=== PATIENT | female | born 1955 | race Caucasian/White ===

== ENCOUNTER 2019-02-28 14:07 | Outpatient (CLI) | payer OTHER, SELFPAY ==
--- NOTE | 2019-02-28 | XR_ITS ---
WS: [id number] Left knee, 02/28/2019 Clinical Data: LEFT KNEE INJURY INITIAL ENCOUNTER Comparison: None. Findings: No fractures or dislocations are seen. The joint spaces are normal. The patella is intact. The soft t issues are unremarkable. XR/XR knee LT 3V* [id number] Impression: Negative left knee.
== END 2019-02-28 14:08 | disposition home or self-care (01) ==
LOC: RADOUTREAD 14:43
PROVIDERS: Family Provider Family Medicine; Visit Provider Nurse Practitioner
DX: S89.92XA Unspecified injury of left lower leg, initial encounter (principal); W01.0XXA Fall on same level from slipping, tripping and stumbling without subsequent striking against object, initial encounter

== ENCOUNTER → 2019-04-25 16:03 | Outpatient (BNVA) | payer OTHER, SELFPAY | PROVIDERS: Family Provider Family Medicine; Visit Provider Orthopaedic Surgery | DX: S82.042A Displaced comminuted fracture of left patella, initial encounter for closed fracture (principal); X58.XXXA Exposure to other specified factors, initial encounter | CPT/HCPCS: 73562 ==

== ENCOUNTER → 2019-06-05 10:17 | Outpatient (BNVA) | payer OTHER, SELFPAY | PROVIDERS: Family Provider Family Medicine; Visit Provider Orthopaedic Surgery | DX: S82.002A Unspecified fracture of left patella, initial encounter for closed fracture (principal); X58.XXXA Exposure to other specified factors, initial encounter | CPT/HCPCS: 73562 ==

== ENCOUNTER 2020-11-12 12:45 | Outpatient (CLI) | payer OTHER, SELFPAY ==
--- NOTE | 2020-11-12 12:52 | MR_ITS ---
WS: [id number] MRI LEFT SHOULDER ARTHROGRAM HISTORY: SUPERIOR LABRUM ANTERIOR TO POSTERIOR TEAR OF LEFT SHOULDER COMPARISON: None available. TECHNIQUE: Pre and postcontrast imaging. Gadolinium mixture was injected under fluoroscopy. Coronal T 1 fat sat, sagittal T2 fat sat, coronal T2 fat sat, axial proton density, axial T1 nonfat saturation and ABER sagittal T1 fat sat views are submitted. Precontrast imaging: Mild AC joint arthritis encroaching upon the supraspinatus tendon. 5 mm osteophy te along the distal undersurface of the acromion causing mild subacromial impingement. Articular surf shaheen 5 mm tear involving the distal supraspinatus tendon and additional tendinopathy. No os acromion. Biceps tendon remains in good position. No marrow edema or fracture. Post contrast imaging: There is good distention of the joint with contrast. On the postcontrast imagi ng there is a large amount of contrast extending into the subacromial and subdeltoid bursa and also a long the posterior lateral humeral head. There is a gap filled with contrast involving the distal pos terior supraspinatus tendon where it inserts. Contrast extends into the supraspinatus tendon consiste nt with an interstitial tear. No labral tear is identified. There is mild thickening of the axillary pouch. MR/MR shoulder LT wo/w con [id number] IMPRESSION: 1. Moderate size insertion site tear of the distal posterior supraspinatus ten don with interstitial extension of the tear. 2. Large amount of contrast extends into the subacromial and subdeltoid bursa after injection. 3. No labral tear is identified. 4. Mild AC joint arthritis. 5. Mild subacromial impingement.
--- NOTE | 2020-11-12 12:58 | IR_ITS ---
WS: [id number] LEFT SHOULDER ARTHROGRAM UNDER FLUOROSCOPY. PRIOR TO MRI EVALUATION. HISTORY: SUPERIOR labrum ANTERIOR-POSTERIOR(SLAP)TEAR OF LEFT SHOULD COMPARISON: None available. FLUOROSCOPY TIME: 0.7 minutes. Procedure, risks and complications were explained to the patient. Consent has been obtained. Under fluoroscopic guidance the skin is marked over the medial superior third of the humeral head, cl eansed with ChloraPrep and anesthetized with lidocaine. 22-gauge spinal needle is inserted to the cor luis of the humeral head. Test injection with Omnipaque reveals the needle is appropriately positioned in the joint. A mixture of 10 cc sterile saline, 5 cc Omnipaque and 0.1 mmol gadolinium are injected under fluoroscopic guidance. Patient tolerated the joint distention well. No complications. IR/IR arthrogram shoulderLT [id number] IMPRESSION: Uncomplicated LEFT shoulder joint injection prior to MRI.
[2020-11-12] MEDS: iohexol 240 mg/mL 50 mL Btl INTRA-ARTI (13:51)
== END 2020-11-12 12:46 | disposition home or self-care (01) ==
PROVIDERS: PCP Family Medicine; Visit Provider Orthopaedic Surgery
DX: S43.432A Superior glenoid labrum lesion of left shoulder, initial encounter (principal); X58.XXXA Exposure to other specified factors, initial encounter; M25.812 Other specified joint disorders, left shoulder; M13.812 Other specified arthritis, left shoulder; M75.102 Unspecified rotator cuff tear or rupture of left shoulder, not specified as traumatic
CPT/HCPCS: 23350; 73223; 77002; Q9966

== ENCOUNTER 2022-12-03 07:59 | Outpatient (CLI) | payer MEDICARE, OTHER, SELFPAY ==
--- NOTE | 2022-12-03 08:04 | MM_ITS ---
WS: [id number] BILATERAL SCREENING DIGITAL TOMOSYNTHESIS MAMMOGRAM WITH CAD HISTORY: Z00.00 - Encounter for general adult medical examination ... COMPARISON: 04/10/2016 and 06/10/2011 Bilateral CC and MLO views with tomosynthesis and synthetic mammography submitted. Computer aided det ection analyzed. Breast composition: The breasts are heterogeneously dense, which may obscure small masses. No suspici ous masses, microcalcifications or architectural distortion. IMPRESSION: MM/[place] [id number] BI-RADS: 1-Negative FOLLOW UP: 1 Year Follow-up
== END 2022-12-03 08:00 | disposition home or self-care (01) ==
LOC: MOBLMAM 08:11
PROVIDERS: PCP Family Medicine; Visit Provider Family Medicine
DX: Z12.31 Encounter for screening mammogram for malignant neoplasm of breast (principal)
CPT/HCPCS: 77063; 77067

== ENCOUNTER → 2022-12-15 11:15 | Outpatient (BNVA) | payer MEDICARE, OTHER, SELFPAY | PROVIDERS: PCP Family Medicine; Visit Provider Family Medicine | DX: F39 Unspecified mood [affective] disorder (principal); G47.00 Insomnia, unspecified; Z00.00 Encounter for general adult medical examination without abnormal findings; Z13.6 Encounter for screening for cardiovascular disorders | CPT/HCPCS: 80053; 80061 ==

== ENCOUNTER → 2023-11-29 13:08 | Outpatient (BNVA) | payer MEDICARE, OTHER, SELFPAY | PROVIDERS: PCP Family Medicine; Visit Provider Family Medicine | DX: Z00.00 Encounter for general adult medical examination without abnormal findings (principal); G47.00 Insomnia, unspecified; F39 Unspecified mood [affective] disorder | CPT/HCPCS: 80053; 80061 ==

== ENCOUNTER → 2024-09-12 09:28 | Outpatient (BNVA) | payer MEDICARE, OTHER, SELFPAY | PROVIDERS: PCP Family Medicine; Visit Provider Family Medicine | DX: F39 Unspecified mood [affective] disorder (principal); F43.9 Reaction to severe stress, unspecified; R11.0 Nausea; G47.00 Insomnia, unspecified; E03.9 Hypothyroidism, unspecified; F32.A Depression, unspecified | CPT/HCPCS: 80053; 82607; 84443; 85025 ==

== ENCOUNTER 2024-11-29 08:54 | Emergency (ER) | payer MEDICARE, OTHER, SELFPAY ==
[2024-11-29 08:55] VITALS: BP 161/73; PULSE 83; RESP 22; O2SAT 100; BMI 17.8
--- NOTE | 2024-11-29 08:58 | ECG_ITS ---
[facility] 2024-[facility]29 Pat Name: Saumya Mckeon Department: Room: Gender: Female Online Editor: : 1955 Requested By: Sangeetha Ibanez Order Number: [id number] Reading MD: PHIL SMITH Measurements Intervals [place] Rate: 67 P: 77 VA: 132 QRS: 87 QRSD: 94 T: 79 QT: 388 QTc: 410 Interpretive Statements SINUS RHYTHM POSSIBLE RIGHT VENTRICULAR CONDUCTION DELAY [RSR (QR) IN V1/V2] No previous ECG available for comparison Electronically Signed On 11-30-2024 16:50:38 CDT by PHIL SMITH [email or web address]
[2024-11-29 09:20] LABS: Hematocrit 44.5 % (36-47); Hemoglobin 14.40 g/dL (11.27-16.99); Mean Corpuscular HGB Conc 32.4 g/dL (30-55); Mean Corpuscular Hemoglobin 27.8 pg (27-33); Mean Corpuscular Volume 85.9 fl (85-98); Nucleated Red Blood Cells % 0 %; Platelet Count 302 10^3/cmm (157-399); Red Blood Count 5.18 10^6/uL (3.85-5.65); White Blood Count 10.58 10^3/uL (3.29-11.43)
--- NOTE | 2024-11-29 09:22 | W.ED.ANXIETY ---
HPI - Anxiety General: Chief Complaint: Anxiety Stated Complaint: Syncope Time Seen by Provider: 11/29/24 08:56 Source: patient Mode of arrival: ambulatory Limitations: no limitations History of Present Illness: 69-year-old female states that she was over the surgery department as her mother had broken her hip was going to have surgery today. States she been feeling extremely anxious and believes she had an anxiety attack she is tachypneic here states that she started breathing fast and felt she was going to pass out and got dizzy she denies any pain anywhere denies any fevers worsening improved after Related Data Home Medications ?Medication ?Instructions ?Recorded ?Confirmed progesterone micronized 100 mg 100 mg PO BEDTIME 11/29/24 11/29/24 capsule trazodone 150 mg tablet 150 mg PO QPM depression/insomnia 11/29/24 11/29/24 Previous Rx's ?Medication ?Instructions ?Recorded ondansetron HCl 4 mg tablet 4 mg PO Q8H PRN nausea and 09/12/24 vomiting #30 tabs pantoprazole 40 mg tablet,delayed 40 mg PO DAILY stomach #90 tabs 11/14/24 release zolpidem 5 mg tablet (Ambien) 5 mg PO .qhs sleep #30 tabs 11/14/24 Allergies Allergy/AdvReac Type Severity Reaction Status Date / Time No Known Allergies Allergy Verified 11/29/24 09:07 Review of Systems Card: Reports: pre-syncope [facility] ED PFSH: Social History Smoking and tobacco/nicotine status: never used tobacco/nicotine Alcohol intake: never Substance/Drug Use: never Physical Exam Const: COMMON NORMALS: no acute distress, patient oriented x3 and healthy appearing GENERAL APPEARANCE: anxious HENMT: COMMON NORMALS: normocephalic and atraumatic HEAD & SCALP: normocephalic and atraumatic Eye: COMMON NORMALS: conjunctivae normal CONJUNCTIVA: Yes conjunctivae normal Neck/C-Spine: COMMON NORMALS: full ROM and supple Chest: COMMONS NORMALS: normal inspection of the chest Resp: COMMON NORMALS: normal respiratory effort, No retractions, No use of accessory muscles and clear to auscultation bilaterally EFFORT & INSPECTION: Yes tachypneic AUSCULTATION: clear to auscultation bilaterally Cardio: COMMON NORMALS: regular rate, regular rhythm and No murmurs present (Cardio) RATE: regular rate RHYTHM: regular rhythm GI: COMMON NORMALS: Normal to inspection, nondistended, normoactive bowel sounds present, Soft to palpation, non-tender and no masses PALPATION: Yes Soft to palpation Extremity: COMMON NORMALS: normal to inspection and full ROM Neuro: COMMON NORMALS: patient oriented x3, moves all extremities and no focal motor deficits Psych: COMMON NORMALS: mental status grossly normal, Normal thought process present and cooperative THOUGHT PROCESS: Normal thought process present Skin: COMMON NORMALS: no rashes or lesions noted and no wounds GENERAL SKIN EXAM: no rashes or lesions noted Course Vital Signs: Vital signs: Vital Signs Pulse Rate 74 11/29/24 11:08 Respiratory Rate 18 11/29/24 10:30 Blood Pressure 148/69 11/29/24 11:08 Pulse Oximetry 100 11/29/24 11:08 Oxygen Delivery Me thod Room Air 11/29/24 10:30 MDM - Anxiety Medical Decision Making Patient presents for the near syncopal event. Differential included anxiety with hyperventilation, acute coronary syndrome, pulm embolism. Here patient has no signs of pulm embolism no tachycardia. She has no signs of acute coronary syndrome she had no chest pain. No signs of neurological cause for the near syncopal event. She was extremely anxious when she first arrived as her mother was getting surgery and was hyperventilating I feel this is likely the cause. She has had no signs of dehydration or anemia here either I did review her labs and went over them with her. Her EKG here showed normal sinus rhythm heart rate of [address] elevation QRS was 94 QTc 403 chest x-ray here showed no acute abnormalities her orthostatics were normal she is stable for discharge she is follow-up with her PCP she understands agrees to plan. Medical Records I reviewed the patient's medical records. Lab Data I reviewed the patient's lab results. 11/29/24 09:13 11/29/24 09:13 Radiology Impressions Chest X-Ray 11/29/24 09:46 Impression: Hyperinflation. Laboratory Results WBC 10.58 10^3/uL (3.29-11.43) 11/29/24 09:13 RBC 5.18 10^6/uL (3.85-5.65) 11/29/24 09:13 Hgb 14.40 g/dL (11.27-16.99) 11/29/24 09:13 Hct 44.5 % (36-47) 11/29/24 09:13 MCV 85.9 fl (85-98) 11/29/24 09:13 MCH 27.8 pg (27-33) 11/29/24 09:13 MCHC 32.4 g/dL (30-55) 11/29/24 09:13 RDW 12.8 % (12.1-15.1) 11/29/24 09:13 Plt Count 302 10^3/cmm (157-399) 11/29/24 09:13 MPV 11.3 fL (7.4-10.4) H 11/29/24 09:13 Neut % (Auto) 83.0 % 11/29/24 09:13 Lymph % (Auto) 12.6 % 11/29/24 09:13 [place] % (Auto) 3.7 % 11/29/24 09:13 Eos % (Auto) 0.1 % 11/29/24 09:13 Baso % (Auto) 0.1 % 11/29/24 09:13 Neut # (Auto) 8.79 10^3/uL (1.8-7.7) H 11/29/24 09:13 Lymph # (Auto) 1.3 10^3/uL (0.8-4.8) 11/29/24 09:13 [place] # (Auto) 0.4 10^3/uL (0.2-0.9) 11/29/24 09:13 Eos # (Auto) 0.0 10^3/uL (0.0-0.8) 11/29/24 09:13 Baso # (Auto) 0.0 10^3/uL (0.0-0.1) 11/29/24 09:13 Nucleated RBC % (auto) 0 % 11/29/24 09:13 Nucleated RBCs # 0.0 /100WBC 11/29/24 09:13 Sodium 137 mmol/L (136-145) 11/29/24 09:13 Potassium 4.2 mmol/L (3.5-5.1) 11/29/24 09:13 Chloride 98 mmol/L (98-107) 11/29/24 09:13 Carbon Dioxide 24 mmol/L (22-29) 11/29/24 09:13 Anion Gap 19.2 (5-19) H 11/29/24 09:13 BUN 18 mg/dL (8-23) 11/29/24 09:13 Creatinine 0.8 mg/dL (0.5-0.9) 11/29/24 09:13 GFR Calculation 71.5 mL/min (90-130) L 11/29/24 09:13 Glucose 155 mg/dL (65-115) H 11/29/24 09:13 Calculated Osmolality 289 mOsm/kg (285-295) 11/29/24 09:13 Calcium 10.2 mg/dL (8.5-10.5) 11/29/24 09:13 Total Bilirubin 0.5 mg/dL (0.15-1.2) 11/29/24 09:13 AST 15 U/L (0-32) 11/29/24 09:13 ALT 7 U/L (0-33) 11/29/24 09:13 Alkaline Phosphatase 94 U/L (35-105) 11/29/24 09:13 Total Protein 8.2 g/dL (6.6-8.7) 11/29/24 09:13 Albumin 4.7 g/dL (3.5-5.2) 11/29/24 09:13 Globulin 3.5 g/dL (1.3-4.6) 11/29/24 09:13 All radiology interpretation(s) finalized by discharge EKG Data EKG 1: I personally reviewed and interpreted this EKG as follows: EKG interpretation date: 11/29/24 EKG interpretation time: 09:03 Interpretation: Chest X-Ray 11/29/24 09:46 Impression: Hyperinflation. nsr hr [address] elevation qrs 94 qtc 403 Other EKG comments: Chest X-Ray 11/29/24 09:46 Impression: Hyperinflation. Discharge Plan Discharge Patient Disposition: Home Clinical Impression: Near syncope, Hyperventilation Condition: Stable Prescriptions: No Action ondansetron HCl 4 mg tablet 4 mg PO Q8H PRN (Reason: nausea and vomiting) Qty: 30 1RF zolpidem [Ambien] 5 mg tablet 5 mg PO .qhs Qty: 30 1RF pantoprazole 40 mg tablet,delayed release (DR/EC) 40 mg PO DAILY Qty: 90 3RF progesterone micronized 100 mg capsule 100 mg PO BEDTIME trazodone 150 mg tablet 150 mg PO QPM Discharge Orders: Discharge ED (Routine); Ordered 11/29/24 Ordered By: Sangeetha Ibanez Referrals: Kieran Powers DO [Primary Care Provider, [facility]] - 4-7 days Discharge Diet: Advance as tolerated Discharge Activity: Resume usual activity Patient Instructions: Near Syncope (ED) Print Language: Romanian Coding Level of Care Code ED Tonger for Brown Moody
[2024-11-29 09:42] LABS: Alanine Aminotransferase 7 U/L (0-33); Albumin Level 4.7 g/dL (3.5-5.2); Alkaline Phosphatase 94 U/L (35-105); Anion Gap 19.2 (5-19); Aspartate Amino Transferase 15 U/L (0-32); Blood Urea Nitrogen 18 mg/dL (8-23); Calcium 10.2 mg/dL (8.5-10.5); Carbon Dioxide 24 mmol/L (22-29); Chloride 98 mmol/L (98-107); Creatinine Clr Calc Pharmacy 55.6830; Globulin 3.5 g/dL (1.3-4.6); Glucose 155 mg/dL (65-115); Osmolality Calculated 289 mOsm/kg (285-295); Potassium 4.2 mmol/L (3.5-5.1); Sodium 137 mmol/L (136-145); Total Protein 8.2 g/dL (6.6-8.7)
--- NOTE | 2024-11-29 09:46 | XR_ITS ---
WS: [id number] Portable AP upright chest, 11/29/2024 Clinical Data: near syncope Comparison: None. Findings: No nodules, masses or effusions are seen. The heart is normal. The pulmonary vascularity is not increased. No pneumonia or pneumothorax is seen. The diaphragms are flattened. Monitor leads are on the chest wall. XR/XR chest 1V portable [id number] Impression: Hyperinflation.
[2024-11-29 10:30] VITALS: BP 137/59; PULSE 69; RESP 18
[2024-11-29 10:35] VITALS: BP 103/61; BP 126/75; BP 129/50; PULSE 89; PULSE 97; PULSE 99
[2024-11-29 11:08] VITALS: BP 148/69; PULSE 74; O2SAT 100
== END 2024-11-29 11:09 | disposition home or self-care (01) ==
PROVIDERS: Emergency Provider Emergency Medicine; PCP Family Medicine
DX: R55 Syncope and collapse (principal); R06.4 Hyperventilation
CPT/HCPCS: 36415; 71045; 80053; 85025; 93005; 99285; J7030; J9999

== ENCOUNTER → 2024-12-05 09:35 | Outpatient (BNVA) | payer MEDICARE, OTHER, SELFPAY | PROVIDERS: PCP Family Medicine; Visit Provider Family Medicine | DX: R10.9 Unspecified abdominal pain (principal); F39 Unspecified mood [affective] disorder; F32.A Depression, unspecified; R11.0 Nausea; G47.00 Insomnia, unspecified; E03.9 Hypothyroidism, unspecified; E55.9 Vitamin D deficiency, unspecified | CPT/HCPCS: 82306; 82607; 83036; 84443 ==